=== PATIENT | female | born 1975 | race Caucasian/White ===

== ENCOUNTER 2017-06-18 13:23 | Emergency (ER) | payer OTHER ==
[2017-06-18 13:23] VITALS: BMI 35.6
[2017-06-18 13:39] VITALS: BP 111/64; PULSE 98; RESP 18; TEMP 98; O2SAT 100
[2017-06-18] MEDS ORDERED: Naproxen 550 mg Tab PO STA (14:14)
[2017-06-18] MEDS ORDERED: Naproxen 550 mg Tab PO ONE (14:22)
[2017-06-18 14:31] LABS: SQUAMOUS EPITHIAL 1 /hpf (0-5); URINE BACTERIA RARE (<OCC); URINE BILIRUBIN NEGATIVE (NEGATIVE); URINE BLOOD NEGATIVE (NEGATIVE); URINE CLARITY Clear (Clear); URINE COLOR Straw (YELLOW); URINE GLUCOSE (UA) NORMAL (Normal); URINE LEUKOCYTE ESTERASE NEG Leu/uL (Negative); URINE PROTEIN NEGATIVE (NEGATIVE); URINE UROBILINOGEN NORMAL mg/dL (0.2-1.0)
--- NOTE | 2017-06-18 14:37 | C.PDOC ---
History Of Present Illness 42 y/o female presents to the ER complaining of headache, fever/chills, and body aches which has been present last night. Patient is also c/o pressure with urination. Patient denies cough, sore throat, abdominal pain, nausea/ vomiting/diarrhea, dysuria/hematuria. Time Seen by Provider: 06/18/17 13:39 Chief Complaint (Nursing): Flu-like Symptoms History Per: Patient History/Exam Limitations: no limitations Onset/Duration Of Symptoms: Days Current Symptoms Are (Timing): Still Present Associated Symptoms: Fever, Chills. denies: Nausea, Vomiting, Diarrhea Severity: Moderate Past Medical History Reviewed: Historical Data, Nursing Documentation, Vital Signs Vital Signs: Last Vital Signs Temp 98.0 F 06/18/17 13:32 Pulse 98 H 06/18/17 13:32 Resp 18 06/18/17 13:32 BP 111/64 06/18/17 13:32 Pulse Ox 100 06/20/17 11:31 - Medical History PMH: No Chronic Diseases Surgical History: Appendectomy - [facility] Procedures CENTRAL VENOUS CATHETER PLACEMENT WITH GUIDANCE (12/10/12) RADICAL EXCIS SKIN LES (11/10/12) Family History: States: No Known Family Hx - Social History Hx Tobacco Use: No Hx Alcohol Use: No Hx Substance Use: No - Immunization History Hx Tetanus Toxoid Vaccination: No Hx Influenza Vaccination: No Hx Pneumococcal Vaccination: No Review Of Systems Except As Marked, All Systems Reviewed And Found Negative. Constitutional: Positive for: Fever, Chills, Malaise ENT: Negative for: Nose Congestion, Throat Pain Respiratory: Negative for: Cough, Shortness of Breath Gastrointestinal: Negative for: Nausea, Vomiting, Abdominal Pain, Diarrhea Genitourinary: Negative for: Dysuria Skin: Negative for: Rash Neurological: Positive for: Headache Physical Exam - Physical Exam Appears: Well, Non-toxic, Other (appears mildly uncomfortable) Skin: Normal Color, Warm, No Rash Head: Normacephalic Eye(s): bilateral: Normal Inspection Ear(s): Bilateral: Normal Nose: Normal Oral Mucosa: Moist Throat: Normal, No Erythema, No Exudate Neck: Supple Cardiovascular: Rhythm Regular Respiratory: Normal Breath Sounds, No Rales, No Rhonchi, No Wheezing Gastrointestinal/Abdominal: Normal Exam, Bowel Sounds, Soft, No Tenderness Neurological/Psych: Oriented x3 ED Course And Treatment O2 Sat by Pulse Oximetry: 100 (RA) Pulse Ox Interpretation: Normal Progress Note: Patient given PO Naprosyn and Tamiflu for viral syndrome/ possible influenza. Rxs for same given. Patient instructed to drink plenty of fluids, get rest and follow up with PMD/clinic in 1-2 days. She undertands she should return to ED if symptoms worsen. Reassessment Condition: Improved Disposition Counseled Patient/Family Regarding: Studies Performed, Diagnosis, Need For Followup, Rx Given - Disposition Referrals: [facility] at [facility] [Outside] Disposition: HOME/ ROUTINE Disposition Time: 14:45 Condition: STABLE Additional Instructions: SEGUIMIENTO CON HUNT MDICO / CLNICA EN 1-2 HUGGINS USE MEDICAMENTOS SEGN LO INDICADO BEBER MUCHO LQUIDO REGRESE AL CHANDLER DE EMERGENCIA SI LOS SNTOMAS EMPEORAN Prescriptions: Naproxen 375 mg PO BID PRN #20 tablet PRN Reason: pain Oseltamivir Phosphate [Tamiflu] 75 mg PO BID #10 capsule Instructions: Viral Syndrome (DC) Forms: [employer] (Thai), Work Excuse Print Language: ESTONIAN - Clinical Impression Clinical Impression: Influenza-like illness, Viral syndrome - Scribe Statement The provider has reviewed the documentation as recorded by the Kimberlyibalexsandra Justin Provider Attestation: All medical record entries made by the Scribe were at my direction and personally dictated by me. I have reviewed the chart and agree that the record accurately reflects my personal performance of the history, physical exam, medical decision making, and the department course for this patient. I have also personally directed, reviewed, and agree with the discharge instructions and disposition.
== END 2017-06-18 14:53 | disposition home or self-care (01) ==
LOC: C.ER 13:23
DX: J11.1 Influenza due to unidentified influenza virus with other respiratory manifestations (principal); B34.9 Viral infection, unspecified

== ENCOUNTER 2017-09-24 05:51 | Emergency (ER) | payer OTHER ==
[2017-09-24 05:51] VITALS: BMI 35.6
[2017-09-24] MEDS ORDERED: DiphenhydrAMINE 50 mg/ml Inj ONE (06:02)
[2017-09-24] MEDS ORDERED: Sodium Chloride 0.9% 1,000 ML ONE (06:03)
[2017-09-24] MEDS ORDERED: Sodium Chloride 0.9% 1,000 ML IV ONE (06:09)
--- NOTE | 2017-09-24 06:10 | C.PDOC ---
History Of Present Illness patient presents with 2 days of diffuse urticarial rash, diffuse itching, no f/c /n/v. Unknown etiology. Tolerating own secretions, speaking in complete sentences Time Seen by Provider: 09/24/17 06:09 Chief Complaint (Nursing): Abnormal Skin Integrity History Per: Patient History/Exam Limitations: no limitations Onset/Duration Of Symptoms: Days (2) Current Symptoms Are (Timing): Still Present Quality Of Symptoms: Itching Severity: Moderate Pain Scale Rating Of: 4 Recent travel outside of the [place]: No Additional History Per: Patient Past Medical History Reviewed: Historical Data, Nursing Documentation, Vital Signs Vital Signs: Last Vital Signs Temp 98 F 09/24/17 05:55 Pulse 89 09/24/17 05:55 Resp 20 09/24/17 05:55 BP 139/82 09/24/17 05:55 Pulse Ox 98 09/24/17 06:09 - Medical History PMH: Denies: Deep Vein Thrombosis, HTN Surgical History: Appendectomy - [facility] Procedures CENTRAL VENOUS CATHETER PLACEMENT WITH GUIDANCE (12/10/12) RADICAL EXCIS SKIN LES (11/10/12) Family History: States: No Known Family Hx - Social History Hx Tobacco Use: No Hx Alcohol Use: No Hx Substance Use: No - Immunization History Hx Tetanus Toxoid Vaccination: No Hx Influenza Vaccination: No Hx Pneumococcal Vaccination: No Review Of Systems Constitutional: Negative for: Fever, Chills Cardiovascular: Negative for: Chest Pain Respiratory: Negative for: Shortness of Breath Gastrointestinal: Negative for: Nausea, Vomiting, Abdominal Pain Musculoskeletal: Negative for: Back Pain Skin: Positive for: Rash. Negative for: Lesions Neurological: Negative for: Weakness Psych: Negative for: Anxiety Physical Exam - Physical Exam Appears: Non-toxic Skin: Warm, Dry, Other (urticaria) Head: Normacephalic Nose: Normal Oral Mucosa: Moist Tongue: Normal Appearing Lips: Normal Appearing Neck: Supple Chest: Symmetrical Cardiovascular: Rhythm Regular Respiratory: No Rales, No Rhonchi, No Wheezing Gastrointestinal/Abdominal: Soft, No Tenderness, No Distention Back: Normal Inspection Extremity: Normal ROM Extremity: Bilateral: Atraumatic Neurological/Psych: Oriented x3, Normal Speech, Normal Cognition Gait: Steady ED Course And Treatment O2 Sat by Pulse Oximetry: 98 Pulse Ox Interpretation: Normal Disposition Counseled Patient/Family Regarding: Studies Performed, Diagnosis - Disposition Disposition Time: 06:09 Condition: FAIR Forms: [employer] (Armenian) - Clinical Impression Clinical Impression: Allergic reaction Physician Patient Turnover Patient Signed Over To: Arcadio Padilla Handoff Comments: pending re-eval and dispostion
[2017-09-24] MEDS ORDERED: DiphenhydrAMINE 50 mg/ml Inj IVP STA (06:12)
[2017-09-24] MEDS ORDERED: MethylPREDNISolone 40 mg Vial IVP STA (06:12)
[2017-09-24 07:39] VITALS: BP 115/62; PULSE 66; RESP 18; TEMP 98.2; O2SAT 100
== END 2017-09-24 09:12 | disposition home or self-care (01) ==
LOC: C.ER 05:51
DX: L50.0 Allergic urticaria (principal)
CPT/HCPCS: 96374; 96375; 99283; J1200; J2930; J7030

== ENCOUNTER 2017-10-08 17:51 | Emergency (ER) | payer OTHER ==
[2017-10-08 17:51] VITALS: BMI 35.6
[2017-10-08 17:58] VITALS: TEMP 98.2; O2SAT 99
--- NOTE | 2017-10-08 19:34 | C.PDOC ---
History Of Present Illness 42 y/o female presents to the ER complaining of rash and itching to face which has been present or the past 2 days. Patient states that she took Benadryl without relief in the morning. Patient reports that she had a rash all over her body 2 weeks ago, sparing her face. She was evaluated in [facility] and she was prescribed Benadryl and Prednisone with complete resolution. Two days ago she noted swelling and itching to her face. She also reports a varicose vein procedure 6 days ago, unaware if the procedure is related to the rash. Notes no h/o acne to her face. Denies having difficulty breathing, difficulty swallowing, tongue swelling, and lip swelling. Time Seen by Provider: 10/08/17 18:15 Chief Complaint (Nursing): Allergic Reaction History Per: Patient History/Exam Limitations: no limitations Onset/Duration Of Symptoms: Days Current Symptoms Are (Timing): Still Present Past Medical History Reviewed: Historical Data, Nursing Documentation, Vital Signs Vital Signs: Last Vital Signs Temp 98.2 F 10/08/17 17:57 Pulse 88 10/08/17 19:48 Resp 16 10/08/17 19:48 BP 128/76 10/08/17 19:48 Pulse Ox 99 10/08/17 19:56 - Medical History PMH: Denies: Deep Vein Thrombosis, HTN Surgical History: Appendectomy - [facility] Procedures CENTRAL VENOUS CATHETER PLACEMENT WITH GUIDANCE (12/10/12) RADICAL EXCIS SKIN LES (11/10/12) Family History: States: No Known Family Hx - Social History Hx Tobacco Use: No Hx Alcohol Use: No Hx Substance Use: No - Immunization History Hx Tetanus Toxoid Vaccination: No Hx Influenza Vaccination: No Hx Pneumococcal Vaccination: No Review Of Systems Except As Marked, All Systems Reviewed And Found Negative. Constitutional: Negative for: Fever, Chills Skin: Positive for: Rash Physical Exam - Physical Exam Appears: Non-toxic, No Acute Distress Skin: Warm, Dry, Other (pustules on erythematous base diffusely on face) Head: Atraumatic, Normacephalic Eye(s): bilateral: Normal Inspection, EOMI Nose: Normal Oral Mucosa: Moist Tongue: No Swelling Lips: No Swelling Throat: Normal, No Erythema, No Exudate Neck: Normal ROM, Supple Chest: Symmetrical Cardiovascular: Rhythm Regular Respiratory: Normal Breath Sounds Extremity: Normal ROM Neurological/Psych: Oriented x3, Normal Speech ED Course And Treatment O2 Sat by Pulse Oximetry: 99 (RA) Pulse Ox Interpretation: Normal Progress Note: Patient treated with Benadryl PO and Motrin PO. On re-evaluation , patient is resting comfortably, tolerating PO, has no shortness of breath, has no intra-oral swelling, no stridor. Patient notes that pruritus has improved. Patient was advised to avoid potential allergens, and to follow up with project controls specialist in 1-2 days. Disposition - Disposition Disposition: HOME/ ROUTINE Disposition Time: 19:29 Condition: STABLE Additional Instructions: Follow up with the skin doctor in 1-2 days. Return to ER if symptoms persist or worsen. Silvina un seguimiento con el mdico de la piel en 1-2 catalan. Regrese a la vickey de emergencias si los sntomas persisten o empeoran. 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 - Scribe Statement The provider has reviewed the documentation as recorded by the Scribe Paula Justin Provider Attestation All medical record entries made by the Scribe were at my direction and personally dictated by me. I have reviewed the chart and agree that the record accurately reflects my personal performance of the history, physical exam, medical decision making, and the department course for this patient. I have also personally directed, reviewed, and agree with the discharge instructions and disposition.
--- NOTE | 2017-10-08 19:37 | C.PDOC ---
History Of Present Illness 42 y/o female presents to the ER complaining of rash and itching to face which has been present or the past 2 days. Patient states that she took Benadryl without relief in the morning. Patient reports that she had a rash 2 weeks ago. S Time Seen by Provider: 10/08/17 18:15 Chief Complaint (Nursing): Allergic Reaction Past Medical History Vital Signs: Last Vital Signs Temp 98.2 F 10/08/17 17:57 Pulse 98 H 10/08/17 17:57 Resp 18 10/08/17 17:57 BP 128/83 10/08/17 17:57 Pulse Ox 99 10/08/17 17:57 - Medical History PMH: Denies: Deep Vein Thrombosis, HTN Surgical History: Appendectomy - [facility] Procedures CENTRAL VENOUS CATHETER PLACEMENT WITH GUIDANCE (12/10/12) RADICAL EXCIS SKIN LES (11/10/12) Family History: States: Unknown Family Hx - Social History Hx Tobacco Use: No Hx Alcohol Use: No Hx Substance Use: No - Immunization History Hx Tetanus Toxoid Vaccination: No Hx Influenza Vaccination: No Hx Pneumococcal Vaccination: No ED Course And Treatment O2 Sat by Pulse Oximetry: 99 Disposition - Disposition Forms: [employer] (Scottish)
[2017-10-08 19:49] VITALS: BP 128/76; PULSE 88; RESP 16
== END 2017-10-08 19:48 | disposition home or self-care (01) ==
LOC: C.ER 17:51
DX: L70.0 Acne vulgaris (principal)

== ENCOUNTER 2017-11-14 19:38 | Emergency (ER) | payer OTHER ==
[2017-11-14 19:38] VITALS: BMI 35.6
[2017-11-14 19:47] VITALS: BP 141/85; PULSE 86; RESP 18; TEMP 98.6; O2SAT 98
--- NOTE | 2017-11-14 20:13 | C.PDOC ---
History Of Present Illness 42 year old female, with no history of allergies, presents to the emergency department after [place]. Patient also notes of itching and pain to her tongue but no vomiting, difficulty breathing, or swelling. Time Seen by Provider: 11/14/17 19:53 Chief Complaint (Nursing): ENT Problem History Per: Patient Onset/Duration Of Symptoms: Hrs Current Symptoms Are (Timing): Still Present Past Medical History Reviewed: Historical Data, Nursing Documentation, Vital Signs Vital Signs: Last Vital Signs Temp 98.6 F 11/14/17 19:43 Pulse 86 11/14/17 19:43 Resp 18 11/14/17 19:43 BP 141/85 11/14/17 19:43 Pulse Ox 98 11/14/17 20:35 - Medical History PMH: Denies: Deep Vein Thrombosis, HTN, Chronic Kidney Disease Surgical History: Appendectomy - [facility] Procedures CENTRAL VENOUS CATHETER PLACEMENT WITH GUIDANCE (12/10/12) RADICAL EXCIS SKIN LES (11/10/12) Family History: States: No Known Family Hx - Social History Hx Tobacco Use: No Hx Alcohol Use: No Hx Substance Use: No - Immunization History Hx Tetanus Toxoid Vaccination: No Hx Influenza Vaccination: No Hx Pneumococcal Vaccination: No Review Of Systems Except As Marked, All Systems Reviewed And Found Negative. Constitutional: Negative for: Fever Eyes: Negative for: Vision Change ENT: Positive for: Other (Tongue pain ). Negative for: Mouth Swelling, Throat Swelling Cardiovascular: Negative for: Chest Pain Respiratory: Negative for: Shortness of Breath Gastrointestinal: Negative for: Nausea, Vomiting Neurological: Negative for: Weakness, Numbness, Dizziness Physical Exam - Physical Exam Appears: Non-toxic, No Acute Distress Skin: Warm, Dry, No Rash Head: Atraumatic, Normacephalic Eye(s): bilateral: Normal Inspection, PERRL, EOMI Tongue: Normal Appearing, No Swelling, No Laceration, No Bleeding Lips: No Swelling Throat: Normal, No Erythema, No Drooling Neck: Normal ROM Chest: Symmetrical, No Tenderness Cardiovascular: Rhythm Regular, No Friction Rub, No Murmur Respiratory: Normal Breath Sounds, No Rales, No Rhonchi, No Stridor, No Wheezing Neurological/Psych: Oriented x3, Normal Speech Gait: Steady ED Course And Treatment O2 Sat by Pulse Oximetry: 98 (RA) Pulse Ox Interpretation: Normal Medical Decision Making Medical Decision Making: Plan: -Benadryl 25 mg PO On re-exam, the patient reports improvement of symptoms. Lungs are CTA, heart is RRR. Abdomen is soft, non-tender and tolerating PO well. Ambulatory in the ED with steady gait. Follow up with the medical doctor within 1-2 days. Return if worsened. Disposition - Disposition Referrals: [facility] at [facility] [Outside] Disposition: HOME/ ROUTINE Disposition Time: 20:17 Condition: GOOD Additional Instructions: follow up with the medical doctor/clinic within 1-2 days. return if worsened. 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 - Scribe Statement The provider has reviewed the documentation as recorded by the Kimberlyibalexsandra Villa All medical record entries made by the Capo were at my direction and personally dictated by me. I have reviewed the chart and agree that the record accurately reflects my personal performance of the history, physical exam, medical decision making, and the department course for this patient. I have also personally directed, reviewed, and agree with the discharge instructions and disposition.
== END 2017-11-14 20:29 | disposition home or self-care (01) ==
LOC: C.ER 19:38
DX: T63.441A Toxic effect of venom of bees, accidental (unintentional), initial encounter (principal)